=== PATIENT | female | born 1970 | race Caucasian/White ===

== ENCOUNTER 2022-03-14 08:37 | Day surgery (SDC) | payer OTHER ==
[~2022-03-14 08:37] MED LIST: Midazolam 1 MG/ML 2 ML SDV ONE; Propofol 200 MG/20 ML SDV ONE; fentaNYL 100 MCG/2 ML SDV ONE
[2022-03-14] MEDS ORDERED: Sodium Chloride 0.9% 1,000 ML IV SCH (09:30)
[2022-03-14] MEDS ORDERED: Propofol 200 MG/20 ML SDV ONE (10:22)
== END 2022-03-14 11:35 | disposition home or self-care (01) ==
LOC: JP.SDS 08:37
PROVIDERS: ATTEND Surgery
DX: Z12.11 Encounter for screening for malignant neoplasm of colon (principal); Z88.2 Allergy status to sulfonamides; Z01.812 Encounter for preprocedural laboratory examination; Z20.822 Contact with and (suspected) exposure to COVID-19
CPT/HCPCS: 45378; 87635; J2250; J2704; J3010; U0002